=== PATIENT | female | born 1975 | race African-American/Black ===

== ENCOUNTER 2022-05-11 09:51 | Emergency (ER) | payer SELFPAY ==
[~2022-05-11] VITALS: Ht 165.1 cm; Wt 61.0 kg
[2022-05-11 09:59] VITALS: BP 115/81
[2022-05-11] MEDS ORDERED: CYCLOBENZAPRINE 10MG TABLET PO ONE (10:45)
[2022-05-11] MEDS ORDERED: KETOROLAC 60MG/2ML VIAL IM ONE (10:45)
[2022-05-11] MEDS ORDERED: NAPR375T5 MT (11:18)
[2022-05-11] MEDS ORDERED: CYCL5TAB MT (11:18)
== END 2022-05-11 13:08 | disposition home or self-care (01) ==
LOC: ER 10:05
DX: S30.0XXA Contusion of lower back and pelvis, initial encounter (principal); R25.2 Cramp and spasm; W01.0XXA Fall on same level from slipping, tripping and stumbling without subsequent striking against object, initial encounter; Y93.89 Activity, other specified; Y92.89 Other specified places as the place of occurrence of the external cause
CPT/HCPCS: 72100; 81025; 96372; 99283; J1885